=== PATIENT | male | born 1980 | race Caucasian/White ===

== ENCOUNTER 2016-11-26 14:46 | Outpatient (CLI) | payer OTHER | END 2016-11-26 14:47 | disposition home or self-care (01) | DX: R10.30 Lower abdominal pain, unspecified (principal) ==

== ENCOUNTER 2018-05-19 08:57 | Outpatient (CLI) | payer OTHER ==
[2018-05-19 18:11] LABS: HB2 TOTAL 15.3 g/dL; HEMOGLOBIN A1C 0.46 g/dL; HEMOGLOBIN A1C % 4.9 % (4.6-6.2)
[2018-05-19 18:22] LABS: BUN - BLOOD UREA NITROGEN 16 mg/dL (6-20); CALCIUM 9.5 mg/dL (8.5-10.3); CARBON DIOXIDE - CO2 24 mmol/L (21-32); CHLORIDE 105 mmol/L (101-111); CREATININE 0.9 mg/dL (0.6-1.2); GFR - MDRD 96 (>89); GLUCOSE 86 mg/dL (70-100); SODIUM 137 mmol/L (135-145)
[2018-05-21 11:33] LABS: CHOL/HDL RATIO 5.1 (<5.0); CHOLESTEROL 249 mg/dL; HDL CHOLESTEROL 49 mg/dL; LDL CHOLESTEROL,CALCULATED 174 mg/dL; LDL/HDL RATIO 3.6 (<3.6); VLDL CHOLESTEROL 26 mg/dL
== END 2018-05-19 08:58 | disposition home or self-care (01) ==
LOC: LAB.F 08:57
PROVIDERS: ATTEND Psychiatry & Neurology Psychiatry
DX: Z51.81 Encounter for therapeutic drug level monitoring (principal)
CPT/HCPCS: 36415; 80048; 80061; 83036; 83721; 84443

== ENCOUNTER 2019-07-14 09:28 | Emergency (ER) | payer OTHER ==
[2019-07-14 10:04] LABS: BASOPHILS # (AUTO) 0.1 10^3/uL (0.0-0.1); EOSINOPHILS # (AUTO) 0.3 10^3/uL (0.0-0.7); EOSINOPHILS % (AUTO) 5.1 %; HGB - HEMOGLOBIN 12.5 g/dL (14.0-18.0); LYMPHOCYTES # (AUTO) 1.3 10^3/uL (1.5-3.5); LYMPHOCYTES % (AUTO) 20.9 %; MEAN CORPUSCULAR HEMOGLOBIN 25.9 pg (27.0-31.0); MEAN CORPUSCULAR HGB CONC 31.8 g/dL (32.0-36.0); MEAN CORPUSCULAR VOLUME 81.4 fL (80.0-94.0); MEAN PLATELET VOLUME 9.8 fL (7.4-11.4); MONOCYTES # (AUTO) 0.6 10^3/uL (0.0-1.0); MONOCYTES % (AUTO) 9.3 %; NEUTROPHILS # (AUTO) 3.8 10^3/uL (1.5-6.6); NEUTROPHILS % (AUTO) 63.2 %; PLT - PLATELET COUNT 275 10^3/uL (130-450); RED BLOOD COUNT 4.83 10^6/uL (4.70-6.10); RED CELL DISTRIBUTION WIDTH 12.5 % (12.0-15.0)
[2019-07-14 10:06] LABS: BILIRUBIN,URINE NEGATIVE (NEGATIVE); GLUCOSE, URINE (UA) NEGATIVE (NEGATIVE); KETONES,URINE (UA) NEGATIVE (NEGATIVE); LEUKOCYTE ESTERASE, URINE NEGATIVE (NEGATIVE); NITRITE,URINE NEGATIVE (NEGATIVE); OCCULT BLOOD,URINE NEGATIVE (NEGATIVE); PROTEIN,URINE NEGATIVE (NEGATIVE); UROBILINOGEN,URINE 0.2 (NORMAL) E.U./dL (NORMAL)
[2019-07-14 10:23] LABS: ALBUMIN 4.6 g/dL (3.2-5.5); ALBUMIN/GLOBULIN RATIO 1.4 (1.0-2.2); BILIRUBIN,TOTAL 0.3 mg/dL (0.2-1.0); CALCIUM 9.4 mg/dL (8.5-10.3); CREATININE 1.1 mg/dL (0.6-1.2); TOTAL PROTEIN 7.9 g/dL (6.7-8.2)
[2019-07-14 10:53] LABS: CLARITY,URINE CLEAR (CLEAR)
[2019-07-14 11:49] VITALS: BP 123/76
--- NOTE | 2019-07-14 12:25 | ED Physician Documentation ---
PD HPI NVD - Stated complaint Stated Complaint: VOMITTING - Chief complaint Chief Complaint: Abd Pain - History obtained from History obtained from: Patient - History of Present Illness Timing - onset: Other (38-year-old gentleman with history of mood disorder who was tapering up on Lamictal started having trouble with vomiting last Friday, 5 days ago. That night he vomited several times. Then he was fine for 2 days, vomited again 2 days ago, was fine yesterday, and vomited today. When he is fine there is no associated nausea. There is no associated abdominal pain. He has had some loose and watery stools with. No sick contacts or recent travel. No fevers. He has not tried a hot shower with this, so we do not know if that helps, but he does use marijuana daily.) Review of Systems Constitutional: denies: Fever, Chills, Fatigue, Weight Loss Nose: denies: Rhinorrhea / runny nose, Congestion Cardiac: denies: Chest pain / pressure, Palpitations Respiratory: denies: Dyspnea, Cough GI: reports: Nausea, Vomiting. denies: Abdominal Pain, Diarrhea PD PAST MEDICAL HISTORY - Past Medical History Past Medical History: Yes Psych: Depression, Bipolar disorder - Past Surgical History Past Surgical History: No - Present Medications Home Medications: Ambulatory Orders Medication Instructions Recorded Confirmed Ondansetron Odt [Zofran] 4 mg TL Q6H PRN #20 tablet 07/14/19 - Allergies Allergies/Adverse Reactions: Allergies Allergy/AdvReac Type Severity Reaction Status Date / Time No Known Drug Allergies Allergy Verified 07/14/19 09:40 - Social History Does the pt smoke?: No Smoking Status: Never smoker Does the pt drink ETOH?: No Substance Use and Type: Marijuana PD ED PE NORMAL - Vitals Vital signs reviewed: Yes - General General: Alert and oriented X 3, No acute distress - HEENT HEENT: PERRL, EOMI, Pharynx benign - Neck Neck: Supple, no meningeal sign, No bony TTP - Cardiac Cardiac: RRR, No murmur - Respiratory Respiratory: No respiratory distress, Clear bilaterally - Abdomen Abdomen: Normal bowel sounds, Soft, Non tender - Back Back: No CVA TTP, No spinal TTP - Derm Derm: Normal color, Warm and dry - Extremities Extremities: No edema, No calf tenderness / cord - Neuro Neuro: Alert and oriented X 3, Normal speech - Psych Psych: Normal mood, Normal affect Results - Vitals Vitals: Vital Signs - 24 hr 07/14/19 07/14/19 09:40 11:48 Temperature 36.6 C 36.6 C Heart Rate 93 88 Respiratory 15 15 Rate Blood Pressure 141/83 H 123/76 O2 Saturation 98 99 Oxygen O2 Source Room air - Labs Labs: Laboratory Tests 07/14/19 07/14/19 07/14/19 09:40 09:40 Unknown WBC 6.0 RBC 4.83 Hgb 12.5 L Hct 39.3 L MCV 81.4 MCH 25.9 L MCHC 31.8 L RDW 12.5 Plt Count 275 MPV 9.8 Neut # (Auto) 3.8 Lymph # (Auto) 1.[address] [place] # (Auto) 0.6 Eos # (Auto) 0.3 Baso # (Auto) 0.1 Absolute Nucleated RBC 0.00 Nucleated RBC % 0.0 Sodium 139 Potassium 4.4 Chloride 106 Carbon Dioxide 26 Anion Gap 7.0 BUN 14 Creatinine 1.1 Estimated GFR (MDRD) 76 L Glucose 96 Calcium 9.4 Total Bilirubin 0.3 AST 23 ALT 21 Alkaline Phosphatase 55 Total Protein 7.9 Albumin 4.6 Globulin 3.3 Albumin/Globulin Ratio 1.4 Lipase 26 Urine Color YELLOW Urine Clarity CLEAR Urine pH 8.0 H Ur Specific [place] 1.010 Urine Protein NEGATIVE Urine Glucose (UA) NEGATIVE Urine Ketones NEGATIVE Urine Occult Blood NEGATIVE Urine Nitrite NEGATIVE Urine Bilirubin NEGATIVE Urine Urobilinogen 0.2 (NORMAL) Ur Leukocyte Esterase NEGATIVE Ur Microscopic Review NOT INDICATED Urine Culture Comments NOT INDICATED PD MEDICAL DECISION MAKING - ED course ED course: We discussed the potential etiologies of his vomiting. A viral illness is a possibility, but that seems unlikely given the time course and intermittent nature of it. Going up on the Lamictal dose is also a possibility, it is a common side effect with Lamictal. They were advised to go back to 100 mg a day pending psychiatric follow-up. Marijuana is also a possibility, he will trial a hot shower next time he has nausea to see if it is curative and if so he will stop marijuana he says. There is no evidence of serious illness, dehydration. Departure - Departure Disposition: 01 Home, Self Care Clinical Impression: Vomiting Qualifiers: Vomiting type: unspecified Vomiting Intractability: non-intractable Nausea presence: with nausea Qualified Code(s): R11.2 - Nausea with vomiting, unspecified Condition: Good Record reviewed to determine appropriate education?: Yes Instructions: ED Nausea Vomiting Prescriptions: Ondansetron Odt [Zofran] 4 mg TL Q6H PRN #20 tablet PRN Reason: Nausea / Vomiting Comments: As discussed, your labs are normal except for very mild anemia. Causes include potential viral illness, but as discussed the time course and intermittent nature of it does not quite fit. Finally marijuana is also a possibility,Lamotrigine is also a possibility. Go back to the 100 mg dose pending psychiatric follow-up, call today for the next available appointment with your prescriber. Try a hot shower next time you are nauseous. If you find it makes you a lot better, consider stopping marijuana. Return for new or worsening symptoms. Forms: Activity restrictions
== END 2019-07-14 12:28 | disposition home or self-care (01) ==
LOC: ED 09:28
DX: R11.2 Nausea with vomiting, unspecified (principal); D64.9 Anemia, unspecified
CPT/HCPCS: 36415; 80053; 81001; 81003; 83690; 85025; 87086; 99283; 99284

== ENCOUNTER 2020-02-04 15:07 | Outpatient (CLI) | payer OTHER ==
--- NOTE | 2020-02-06 01:50 | XRAY Report ---
Reason: SACROCOCCYGEAL DISORDERS Procedure Date: 02/04/2020 Accession Number: [id number] / [id number] Procedure: XR - Sacrum/Coccyx CPT Code: Final Report FULL RESULT: EXAM: SACRUM AND COCCYX RADIOGRAPHY EXAM DATE: 02/04/2020 03:31 PM. HISTORY: SACROCOCCYGEAL DISORDERS. COMPARISONS: None. TECHNIQUE: 2 views. FINDINGS: Alignment: Normal. The sacrum and coccyx are normally aligned. Bones: Normal. No fracture or bone lesion. Joints: Normal. The sacroiliac joints and visualized hips are within normal limits. Soft Tissues: Unremarkable. IMPRESSION: Normal sacrum and coccyx radiography. [facility]
== END 2020-02-04 15:08 | disposition home or self-care (01) ==
LOC: DI 15:07
PROVIDERS: ATTEND Physician Assistant
DX: M53.3 Sacrococcygeal disorders, not elsewhere classified (principal)
CPT/HCPCS: 72220